=== PATIENT | male | born 1935 | race Caucasian/White ===

== ENCOUNTER 2016-12-05 13:00 | Inpatient (IN) | payer MEDICARE, BC ==
[~2016-12-05] VITALS: Ht 170.2 cm; Wt 70.4 kg
--- NOTE | ~2016-12-05 | DS ---
PATIENT'S NAME: SARAHY STRAUSS [facility] AGE: 81 Y [address] ROOM: [place] [address] LOCATION: [facility] ADMIT DATE: 12/11/2016 Discharge Summary DISCHARGE DATE: 12/13/2016 FAMILY PHYSICIAN: Vincent Kan MD ATTENDING PHYSICIAN: Adelso Wright PRIMARY DIAGNOSIS: Degenerative joint disease of the left knee. SECONDARY DIAGNOSES: 1. Hypertension. 2. 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 3. Lumbar spine degenerative disk disease. PROCEDURE PERFORMED: Left total knee arthroplasty with computer navigation. HISTORY: The patient is an 81-year-old male, who presents with advanced left knee degenerative joint disease and associated severely compromised activities of daily living. The patient has decided to proceed with total knee arthroplasty after having been thoroughly counseled regarding the risks, benefits, limitations and alternatives. Please refer to the outpatient clinic notes and admission history and physical for this patient. HOSPITAL COURSE: The patient underwent a left total knee arthroplasty on 12/11/2016 without complications. Spinal anesthesia plus adductor canal block plus periarticular local anesthesia was utilized. The patient received 24 hours of perioperative prophylactic antibiotics and remained hemodynamically stable, neurovascularly intact throughout the entire hospital course. The postoperative prophylactic deep venous thrombosis prophylaxis consisted of Xarelto, early mobilization and pneumatic compression devices. Daily physical therapy for gait training, transfer training range of motion and quadriceps isometric exercises were received. The patient progressed well in physical therapy. On the date of discharge, 12/13/2016, the incision at the knee was healing well and showed no signs of infection. DISPOSITION: Home. DISCHARGE ACTIVITY: The patient is to bear weight as tolerated with range of motion and quadriceps isometric exercises as instructed. The operative extremity is to be elevated at least 90% of the day. There is to be sterile 4x4 gauze dressings to the incision daily. is to be notified immediately if there is any increased pain, fevers, chills erythema or drainage. DISCHARGE MEDICATIONS: 1. Xarelto 10 mg, take 1 tablet p.o. daily for DVT prevention. PATIENT'S NAME: SARAHY STRAUSS [facility] AGE: 81 Y [address] ROOM: [place] [address] LOCATION: [facility] ADMIT DATE: 12/11/2016 Discharge Summary DISCHARGE DATE: 12/13/2016 FAMILY PHYSICIAN: Vincent Kan MD ATTENDING PHYSICIAN: Adelso Wright 2. Tylenol Extra Strength, take 2 tablets p.o. every 6 hours as needed for pain. FOLLOWUP: Followup appointment is to be with on December 18, 2016, for initial postoperative evaluation with x-rays and for staple removal. CHITO VILLATORO FOR ADELSO WRIGHT MD TLB/modl /[id number] d: 12/19/16 0349 t: 12/26/16 1032, DISCHARGE SUMMARY
--- NOTE | ~2016-12-05 | OR ---
PATIENT'S NAME: SARAHY STRAUSS [facility] AGE: 80 Y [address] ROOM: [place] [address] LOCATION: [facility] ADMIT DATE: 12/11/2016 OR/Procedure Report DISCHARGE DATE: FAMILY PHYSICIAN: Vincent Kan MD ATTENDING PHYSICIAN: ADELSO WRIGHT SURGEON: Adelso Wright MD REGIONAL SALES ENGINEER: 1. CHITO Pimentel. 2. Clif Gutierrez CST/TAWANDA. DATE OF PROCEDURE: 12/11/2016 PRE-OP DIAGNOSIS: Degenerative joint disease, left knee. POST-OP DIAGNOSIS: Degenerative joint disease, left knee. OPERATION: Left total knee arthroplasty with computer navigation. ANESTHESIA: Spinal anesthesia plus adductor canal block plus periarticular local anesthesia (ropivacaine with epinephrine). ESTIMATED BLOOD LOSS: Less than 10 mL. DRAIN: None. SPECIMEN: None. COMPLICATIONS: None. IMPLANT SYSTEM: [place] Triathlon Size 5 posterior stabilized femoral component. Size 4 universal modular tibial tray. 11 mm posterior stabilized size 4 X3 tibial polyethylene insert. 32 mm oval X3 patella component (triple pegged). INDICATIONS FOR SURGERY: Sarahy Strauss is an 80-year-old male who presents with advanced left knee degenerative joint disease and associated severely compromised activities of daily living. The patient has decided to proceed with knee replacement after having been thoroughly counseled regarding the associated risks, benefits, and limitations. We have specifically reviewed the risks and implications of infection, deep venous thrombosis, pulmonary embolism, mortality, neurovascular complications, blood transfusion (and associated potential for disease transmission or transfusion reaction), stiffness, instability, mechanical deterioration of the components (due to wear and or loosening), and the potential need for revision. We have also emphasized the importance of active involvement and compliance with post- operative physical therapy as a means of optimizing range of motion and PATIENT'S NAME: CARLOS A FLORENCE Yesi [facility] AGE: 80 Y [address] ROOM: [place] [address] LOCATION: [facility] ADMIT DATE: 12/11/2016 OR/Procedure Report DISCHARGE DATE: FAMILY PHYSICIAN: Vincent Kan MD ATTENDING PHYSICIAN: ADELSO WRIGHT functional recovery. Informed consent has been granted. DESCRIPTION OF PROCEDURE: The patient was positioned supine after administration of anesthesia and prophylactic antibiotics. A well-padded pneumatic tourniquet was placed around the left proximal thigh, and the left lower extremity was prepped and draped with vigilant sterile technique. The patient's name as well as the intended operative side and procedure were confirmed with a verbal time-out involving myself, the circulating nurse, the scrub nurse, and the anesthesiologist. Examination under anesthesia demonstrated a moderate effusion. There was no erythema. There was no abnormal warmth. There were no active skin lesions or masses. Range of motion under anesthesia was from a 5-degree flexion contracture to 130 degrees of flexion. There was no ligamentous insufficiency. The left lower extremity was elevated and exsanguinated with an Esmarch wrap, and the pneumatic tourniquet was inflated to 300 mmHg. The knee was approached through a longitudinal midline incision. A medial parapatellar arthrotomy was performed and the patella was everted. Examination of the joint space demonstrated a moderate amount of benign-appearing translucent synovial fluid. The cruciate ligaments were intact. There was a moderate- sized osteophyte at the lateral aspect of the intercondylar notch. There was no significant synovitis. There were no loose bodies. There was a large prepatellar bursa. There was a thickened bursal wall, but no significant intrabursal fluid. There was full-thickness loss of articular cartilage involving 90% of the medial facet of the patella and 90% of the medial half of the femoral trochlea. There was extensive chondrocalcinosis throughout the remainder of the trochlea. There was mild chondrocalcinosis throughout the lateral facet of the patella. There was a small osteophyte at the inferior margin of the patella and a small osteophyte at the medial margin of the femoral trochlea. There was full-thickness loss of articular cartilage involving the anteromedial 80% of the medial femoral condyle and 90% of the medial tibial plateau. There were longitudinal grooves in the exposed subchondral bone at the medial femoral condyle and medial tibial plateau yielding a mild corduroy appearance. There was a 6-mm diameter region of chondrocalcinosis and a full-thickness unstable articular cartilage flap at the central aspect of the lateral femoral condyle. There was a 5 x 12 mm region of high-grade partial thickness articular cartilage loss at the medial margin of the lateral femoral condyle. There was mild chondrocalcinosis and mild grade 3 chondromalacia at the medial half of the lateral tibial plateau. There was extensive complex degenerative tearing of the medial meniscus and mild inner perimeter tearing of the lateral meniscus. There was moderate chondrocalcinosis at the medial and lateral menisci. PATIENT'S NAME: SARAHY STRAUSS [facility] AGE: 80 Y [address] ROOM: [address] [address] LOCATION: [facility] ADMIT DATE: 12/11/2016 OR/Procedure Report DISCHARGE DATE: FAMILY PHYSICIAN: Vincent Kan MD ATTENDING PHYSICIAN: ADELSO WRIGHT Remnants of the menisci and cruciate ligaments were excised. The eV[employer] computer navigation femoral tracker was pinned in place at the distal aspect of the femoral trochlea. Absence of motion between the femur and the tracking device was confirmed manually and visually. Femoral osseous landmarks were obtained in order to calibrate the computer navigation system. Landmarks included the center of rotation of the ipsilateral hip, the center-point of the distal femur, the femoral AP axis, 57 points on the medial femoral condyle articular surface, and 57 points on the lateral femoral condyle articular surface. The eVropa computer navigation system was subsequently utilized to position the distal femoral resection block such that the distal femoral resection was performed perfectly perpendicular to the femoral mechanical axis. The distal femoral resection was performed with a Qnekt oscillating saw. The eVropa computer navigation tibial tracker was pinned in place at the anterior aspect of the tibial plateau. Absence of motion between the tibia and the tracking device was confirmed manually and visually. Tibial osseous landmarks were obtained in order to calibrate the computer navigation system. Landmarks included the center-point of the tibial plateau, the AP tibial axis, 57 points on the medial tibial plateau articular surface, 57 points on the lateral tibial plateau articular surface, the medial malleolus, and the lateral malleolus. The eVropa computer navigation system was subsequently utilized to position the proximal tibial resection block such that the proximal tibial resection was performed perfectly perpendicular to the tibial mechanical axis. The proximal tibial resection was performed with a Varthana Precision oscillating saw. Perpendicularity of the tibial resection with respect to the tibial shaft axis was reconfirmed by inserting a spacer- block attached to an extramedullary guide eduardo. External rotation of the anterior and posterior femoral resections was set parallel to the epicondylar axis and carefully adjusted in order to create a rectangular flexion gap. The box resection was performed with a reciprocating saw. Anterior and posterior chamfer resections were performed with the oscillating saw. Posterior condyle osteophytes were excised with an osteotome. All other osteophytes were excised with a rongeur. Resection of all remnants of the menisci was reconfirmed. Flexion and extension gaps were confirmed to be symmetric and well balanced with a spacer-block technique. The patella resection was performed with an oscillating saw such that the composite thickness of the reconstructed patella was equivalent to the thickness of the [place] patella. Patella tracking was confirmed to be optimal. Patella tracking was optimal, and there was no need for a lateral retinacular release. PATIENT'S NAME: SARAHY STRAUSS [facility] AGE: 80 Y [address] ROOM: [address] [place] [id number] LOCATION: [facility] ADMIT DATE: 12/11/2016 OR/Procedure Report DISCHARGE DATE: FAMILY PHYSICIAN: Vincent Kan MD ATTENDING PHYSICIAN: ADELSO WRIGHT All trial components were removed and all prepared osseous surfaces were thoroughly irrigated with pulsatile saline lavage and dried prior to cementing all three components in a single stage using Shantel Simplex cement containing pre-mixed tobramycin. All extruded excess cement was removed. The entire joint space was thoroughly inspected and thoroughly irrigated with bacteriostatic pulsatile saline lavage to assure that there was no residual debris of any sort. Final range of motion was from full extension (with no passive hyperextension) to 130 degrees of flexion. Patella tracking was reconfirmed to be optimal. There was excellent anteroposterior stability at 90 degrees of flexion. There was less than 1 mm of medial lift-off to valgus stress in full extension. There was less than 1 mm of lateral lift-off to varus stress in full extension. The arthrotomy was closed with multiple simple and [id number] interrupted #1 Vicryl. Subcutaneous tissues were thoroughly re-irrigated with bacteriostatic pulsatile saline lavage. Subcutaneous tissues were re- approximated with simple buried interrupted #0 Vicryl sutures. The skin was closed with simple buried interrupted 2-0 Vicryl sutures followed by surgical aris. The dressing consisted of Xeroform gauze, 4x4 gauze, ABD pads and two 6-inch Osmin Wraps. There were no intra-operative complications. It should be noted that the physician's financial administrative assistant played an active, integral role throughout this entire operation. By providing expert retraction, they greatly facilitated and expedited safe and effective exposure of the distal femur, proximal tibia and patella for preparation and implantation of the components. They were also actively involved in the patient's positioning, prepping and draping, as well as wound closure. MD PAIGE PALOMO/pilo /[id number] d: 12/12/16249 t: 12/12/162114, OPERATIVE SUMMARY
--- NOTE | ~2016-12-05 | CON ---
PATIENT'S NAME: SARAHY STRAUSS [facility] AGE: 80 Y [address] ROOM: [address] [place], [place] [address] LOCATION: [facility] ADMIT DATE: 12/11/2016 Consultation DISCHARGE DATE: FAMILY PHYSICIAN: Vincent Kan MD ATTENDING PHYSICIAN: ADELSO WRIGHT DATE OF CONSULTATION: 12/12/2016 REFERRING PHYSICIAN: Tish Walker MD REASON FOR CONSULTATION: "Urinary retention." HISTORY: This is an 80-year-old gentleman, who underwent left total knee under spinal anesthetic yesterday. He has apparently had some postoperative voiding issues. By his report, he felt like he maybe had to go and could not. Therefore, based on standard, preprinted orders, the nurses straight cathed him. By report, they got 275 mL. Now this morning, he is complaining of burning and irritation after the catheterization. He had a bladder scan of 356 mL. He does not feel full. Apparently, while the nurses successfully straight cathed him in the night, they can get a catheter in now. The patient refuses any more tries. Thus the consult. In discussion with the patient, he and I have met before. He tells me it was many years ago. He gives a good description of a prostate biopsy. We do not have records on it. However, he also followed with Dr. Amaro and Dr. Avila, and he may have had a biopsy then. He has been seen for BPH. However, he was satisfied with his premorbid voiding pattern. He usually got up once a night. In fact, he was not even on any medical management. CHITO Paul has started Flomax this morning. As noted, he has spinal block. He has not passed significant gas. I suspect it is simply a situation where his underlying BPH and his spinal are working against him. Since he is not uncomfortable, and per his preference, I think it is reasonable to give him some more time. If he cannot void, I will check back and place a catheter for him. He is comfortable with that. IMPRESSION: 1. Postop retention. 2. Underlying benign prostatic hypertrophy with bladder obstruction. PLAN: Observation for now and I will follow up later today. PATIENT'S NAME: SARAHY STRAUSS [facility] AGE: 80 Y [address] ROOM: [id number] [place] [address] LOCATION: [facility] ADMIT DATE: 12/11/2016 Consultation DISCHARGE DATE: FAMILY PHYSICIAN: Vincent Kan MD ATTENDING PHYSICIAN: ADELSO WRIGHT YANELI BONILLA MD SFH/modl /[id number] CC: Vincent Kan MD d: 12/12/16 1927 t: 12/19/16 1011, CONSULTATION REPORT
[~2016-12-05 13:00] MED LIST: ARTHRO 7 PO; LISINOPRIL-HCT1 EAC1 PO
[2016-12-05] MEDS ORDERED: PROSTATA PO (13:14)
[2016-12-11] MEDS ORDERED: ALEVE220 MG PO (10:21)
[2016-12-13] MEDS ORDERED: TYLENOL EXTRA500 MG PO (14:02)
[2016-12-13] MEDS ORDERED: COLACE100 MG PO (14:03)
[2016-12-13] MEDS ORDERED: XARELTO10 MG PO (14:04)
[2016-12-13] MEDS ORDERED: MIRALAX17 GM PO (14:04)
[2016-12-13] MEDS ORDERED: FLOMAX0.4 MG PO (14:05)
[2016-12-13] MEDS ORDERED: NUCYNTA50 MG PO (14:07)
== END 2016-12-13 14:42 | disposition disaster alternative care site (69) | DRG 470 ==
LOC: G3N 12-11 08:32
PROVIDERS: ADMIT Orthopaedic Surgery
DX: M17.12 Unilateral primary osteoarthritis, left knee (principal); N13.8 Other obstructive and reflux uropathy; I10 Essential (primary) hypertension; N40.1 Benign prostatic hyperplasia with lower urinary tract symptoms; R33.9 Retention of urine, unspecified; M48.06 Spinal stenosis, lumbar region; M51.36 Other intervertebral disc degeneration, lumbar region; R06.6 Hiccough
CPT/HCPCS: C1713; C1776; J0690; J1100; J1885; J2001; J2405; J2795; J7120

== ENCOUNTER → 2016-12-07 | Outpatient (CLI) | payer MEDICARE, BC ==
[~2016-12-07] MED LIST changes: +ALEVE220 MG PO; +COLACE100 MG PO; +FLOMAX0.4 MG PO; +MIRALAX17 GM PO; +NUCYNTA50 MG PO; +PROSTATA PO; +TYLENOL EXTRA500 MG PO; +XARELTO10 MG PO
== END | disposition disaster alternative care site (69) ==
LOC: GNJRC 09:55
DX: Z01.812 Encounter for preprocedural laboratory examination (principal); M17.12 Unilateral primary osteoarthritis, left knee

== ENCOUNTER → 2016-12-07 | Outpatient (CLI) | payer MEDICARE, BC ==
[2016-12-07 09:43] LABS: PROTIME 10.5 SECONDS (9.6-11.1)
== END | disposition disaster alternative care site (69) ==
LOC: LGSMG 09:29
PROVIDERS: Internal Medicine
DX: Z01.818 Encounter for other preprocedural examination (principal)